=== PATIENT | male | born 1965 | race Two or more races ===

== ENCOUNTER 2020-01-19 15:17 | Emergency (ER) | payer OTHER ==
[~2020-01-19] VITALS: Ht 172.7 cm; Wt 81.6 kg
[2020-01-19 15:25] VITALS: Ht 172.7 cm; Wt 81.6 kg
[2020-01-19 16:58] VITALS: BP 128/105
== END 2020-01-19 16:58 | disposition home or self-care (01) ==
LOC: ED 15:17
DX: S41.151A Open bite of right upper arm, initial encounter (principal); S31.159A Open bite of abdominal wall, unspecified quadrant without penetration into peritoneal cavity, initial encounter; W54.0XXA Bitten by dog, initial encounter; Y93.89 Activity, other specified; Y92.89 Other specified places as the place of occurrence of the external cause; Y99.8 Other external cause status
CPT/HCPCS: 90715; J1885; J2001; Q0092

== ENCOUNTER 2020-01-23 09:01 | Emergency (ER) | payer OTHER ==
[~2020-01-23] VITALS: Ht 170.2 cm; Wt 74.8 kg
[2020-01-23 09:08] VITALS: Ht 170.2 cm; Wt 74.8 kg
[2020-01-23 09:50] VITALS: BP 126/76
== END 2020-01-23 09:50 | disposition home or self-care (01) ==
LOC: ED 09:01
DX: S21.111D Laceration without foreign body of right front wall of thorax without penetration into thoracic cavity, subsequent encounter (principal); S51.811D Laceration without foreign body of right forearm, subsequent encounter; R20.2 Paresthesia of skin; W54.0XXD Bitten by dog, subsequent encounter

== ENCOUNTER 2020-01-26 08:06 | Emergency (ER) | payer OTHER ==
[~2020-01-26] VITALS: Ht 170.2 cm; Wt 75.0 kg
[2020-01-26 08:13] VITALS: Ht 170.2 cm; Wt 75.0 kg
[2020-01-26 09:25] VITALS: BP 146/93
== END 2020-01-26 09:25 | disposition home or self-care (01) ==
LOC: ED 08:06
DX: S51.811D Laceration without foreign body of right forearm, subsequent encounter (principal); W54.0XXD Bitten by dog, subsequent encounter